=== PATIENT | male | born 1970 | race Caucasian/White ===

== ENCOUNTER 2024-02-16 19:00 | Emergency (ER) | payer MEDICAID, OTHER ==
[~2024-02-16] VITALS: Ht 172.7 cm; Wt 122.0 kg
[2024-02-16 19:40] VITALS: PULSE 83; RESP 15; O2SAT 90
[2024-02-16 19:45] LABS: Basophils # (auto) 0 10 ^3/uL (0-0.2); Basophils % (auto) 0.6 % (0.0-2.0); Eosinophils # (auto) 0.1 10 ^3/uL (0-0.8); Eosinophils % (auto) 0.9 % (0.0-7.0); Hematocrit 47.3 % (41.0-53.0); Hemoglobin 15.7 g/dL (13.5-17.5); Lymphocytes # (auto) 1.7 10 ^3/uL (0.4-5.4); Lymphocytes % (auto) 22.3 % (10.0-50.0); Mean Corpuscular Hemoglobin 31.3 pg (28.0-32.0); Mean Corpuscular Hgb Conc. 33.2 g/dL (32.0-36.0); Mean Corpuscular Volume 94.1 fL (80.0-100.0); Monocytes # (auto) 0.1 10 ^3/uL (0-1.3); Monocytes % (auto) 1.6 % (0.0-12.0); Neutrophils # (auto) 5.8 10 ^3/uL (1.6-8.6); Neutrophils % (auto) 74.6 % (37.0-80.0); Nucleated Red Blood Cells % 0.1 %; Platelet Count (auto) 223 10^3/uL (140-450); Red Blood Cells 5.03 10^6/uL (4.5-5.90); Red Cell Distribution Width 15.4 % (11.8-14.3); White Blood Cell 7.7 10^3/uL (4.4-10.8)
[2024-02-16 19:58] LABS: Alanine Aminotransferase 99 U/L (7-40); Albumin 4.5 g/dL (3.2-4.8); Alkaline Phosphatase 96 U/L (46-116); Anion Gap 13 (5-15); Aspartate Aminotransferase 90 U/L (13-40); BUN/Creatinine Ratio 17.6 (10.0-20.0); Blood Alcohol < 3.0 mg/dL (<10); Blood Urea Nitrogen 25 mg/dL (9-23); Calcium 9.2 mg/dL (8.7-10.4); Carbon Dioxide 20 mmol/L (20-31); Chloride 110 mmol/L (98-107); Glucose 226 mg/dL (74-106); Potassium 4.2 mmol/L (3.5-5.1); Sodium 143 mmol/L (136-145)
[2024-02-16 19:59] LABS: Bilirubin, Total 0.3 mg/dL (0.2-1.0); Total Protein 6.7 g/dL (5.7-8.2)
[2024-02-16 20:11] LABS: Lipase 48 U/L (12-53)
[2024-02-16] MEDS: SODIUM CHLORIDE 0.9% 1,000 ML IV ONE (20:20)
[2024-02-16 23:41] LABS: Urine Bacteria None Seen /hpf (None Seen)
[2024-02-17] LABS: Amphetamine Screen, Urine Pos (NEGATIVE); Barbiturate Scree,Urine Neg (NEGATIVE); Benzodiazephine Screen, Urine Neg (NEGATIVE); Cocaine Screen, Urine Neg (NEGATIVE); Opiate Scree,Urine Neg (NEGATIVE)
[2024-02-17 00:01] LABS: Cannabinoid Screen, Urine Neg (NEGATIVE); Phencyclidine Screen, Urine Neg (NEGATIVE)
[2024-02-17 00:08] LABS: Urine Blood 1+ /uL (Negative); Urine Clarity Turbid (Clear); Urine Color Yellow (Yellow); Urine Mucus FEW (None Seen); Urine Protein, UAD 2+ (Negative); Urine Specific Gravity 1.024 (1.001-1.035); Urine Urobilinogen Normal (Negative); Urine WBC 11 /hpf (0 - 3)
[2024-02-17 00:51] VITALS: BP 111/71; PULSE 86; RESP 16; TEMP 97.6; O2SAT 90
== END 2024-02-17 00:48 | disposition left against medical advice (07) ==
LOC: EDBD 19:00 → ER 19:00
DX: T50.7X1A Poisoning by analeptics and opioid receptor antagonists, accidental (unintentional), initial encounter (principal); R41.82 Altered mental status, unspecified; R79.89 Other specified abnormal findings of blood chemistry; N17.9 Acute kidney failure, unspecified; R94.31 Abnormal electrocardiogram [ECG] [EKG]; Z79.899 Other long term (current) drug therapy; Y92.9 Unspecified place or not applicable
CPT/HCPCS: 36415; 70450; 74176; 80053; 80307; 80320; 81001; 83690; 83880; 84484; 85025; 93005; 96360; 96361; 99285; J7030